=== PATIENT | male | born 1970 | race Caucasian/White ===

== ENCOUNTER 2021-02-11 16:34 | Emergency (ER) | payer MEDICARE, OTHER ==
[~2021-02-11] VITALS: Ht 177.8 cm; Wt 71.2 kg
--- NOTE | 2021-02-11 16:34 | NUR ---
PT [facility] 58 AND [employer] FROM THE BUS STATION C/O FACIAL TRAUMA AND BEHAVIORAL. PT IS AAOX4, NOT IN RESPIRATORY DISTRESS, V/S STABLE, KEPT RESTED AND COMFORTABLE. SITTER AT BEDSIDE. WILL CONTINUE TO MONITOR.
[2021-02-11] MEDS ORDERED: OLANZAPINE 10 MG VIAL IM ONE ×2 (16:50→17:00)
--- NOTE | 2021-02-11 18:18 | NUR ---
CALLED Ramirez Mckeon [phone] [facility] DOCTOR WILL BE PAGED.
[2021-02-11] MEDS ORDERED: LIDOCAINE 0.5%-EPI 1:200,000 50 ML VIAL ONE (18:20)
[2021-02-11] MEDS ORDERED: MORPHINE SULFATE INJ 4 MG/ML DISP.SYRIN ONE (18:29)
[2021-02-11] MEDS ORDERED: ONDANSETRON HCL/PF 4 MG/2 ML VIAL ONE (18:29)
[2021-02-11] MEDS ORDERED: ONDANSETRON HCL/PF 4 MG/2 ML VIAL IVP ONE (18:30)
[2021-02-11] MEDS ORDERED: CEFAZOLIN 1 GM in IV D5W 50 ML IV ONE (18:30)
[2021-02-11] MEDS ORDERED: IV NS 0.9% 1,000 ML BAG IV ONE (18:30)
[2021-02-11] MEDS ORDERED: LIDOCAINE 1%-EPI 1:100,000 20 ML VIAL TP ONE (18:30)
[2021-02-11] MEDS ORDERED: MORPHINE SULFATE INJ 2 MG/ML DISP.SYRIN IV ONE (18:30)
[2021-02-11] MEDS ORDERED: MIDAZOLAM HCL 5 MG/5ML VIAL ONE (18:40)
[2021-02-11 18:42] LABS: CALCIUM, SERUM 8.9 mg/dL (8.5-10.1); CREATININE 0.8 mg/dL (0.6-1.3); POTASSIUM 3.2 mmol/L (3.5-5.1)
[2021-02-11 18:47] LABS: ALBUMIN 3.7 g/dL (3.4-5.0); BILIRUBIN,DIRECT 0.1 mg/dL (0.0-0.2); BILIRUBIN,TOTAL 0.3 mg/dL (0.2-1.0); TOTAL PROTEIN, SERUM 7.3 g/dL (6.4-8.2)
[2021-02-11] MEDS ORDERED: MIDAZOLAM HCL 5 MG/5ML VIAL IV ONE (19:30)
[2021-02-11 19:44] LABS: BASOPHILS # (AUTO) 0.1 K/uL (0.0-0.2); BASOPHILS % (AUTO) 0.7 % (0.0-2.0); EOSINOPHILS % (AUTO) 5.1 % (0.0-6.0); HEMATOCRIT 38 % (39-51); HEMOGLOBIN 12.9 g/dL (13.5-17.5); LYMPHOCYTES # (AUTO) 1.1 K/uL (0.8-4.8); LYMPHOCYTES % (AUTO) 14.7 % (20.0-44.0); MEAN CORPUSCULAR HGB CONC 34 g/dl (31.0-36.0); MEAN CORPUSCULAR VOLUME 94 fL (80-96); MONOCYTES # (AUTO) 0.6 K/uL (0.1-1.30); MONOCYTES % (AUTO) 7.6 % (2.0-12.0); NEUTROPHILS # (AUTO) 5.4 K/uL (1.8-8.9); NEUTROPHILS % (AUTO) 71.9 % (43.0-81.0); PLATELET COUNT (AUTO) 298 K/uL (150-450); RED BLOOD CELL COUNT(AUTO) 4.09 MIL/uL (4.5-6.0); WHITE BLOOD COUNT (AUTO) 7.6 K/uL (4.3-11.0)
--- NOTE | 2021-02-11 20:17 | NUR ---
MAC CALLED FOR HIGHER LEVEL OF CARE. ONLY OPEN TO TRAUMA AND OB
[2021-02-11] MEDS ORDERED: AMOX-430 PO (22:02)
--- NOTE | 2021-02-12 05:54 | NUR ---
Patient isambulatory with a steady gait.
[2021-02-12 05:55] VITALS: BP 125/83
--- NOTE | 2021-02-12 05:55 | NUR ---
IV removed. Catheter intact and site benign. Pressure and 4x4 applied to site. No bleeding noted.
--- NOTE | 2021-02-12 05:56 | NUR ---
Patient discharged to home in stable condition. Written and verbal after care instructions given. Patient verbalizes understanding of instruction.
--- NOTE | 2021-02-12 05:56 | NUR ---
Patient teachbacks that he will follow up with Dr. Correa for surgery within the week.
== END 2021-02-12 05:55 | disposition home or self-care (01) ==
LOC: ER 16:40
DX: S02.2XXA Fracture of nasal bones, initial encounter for closed fracture (principal); S02.40CA Maxillary fracture, right side, initial encounter for closed fracture; F17.290 Nicotine dependence, other tobacco product, uncomplicated; S02.40EA Zygomatic fracture, right side, initial encounter for closed fracture; S02.85XA Fracture of orbit, unspecified, initial encounter for closed fracture; S01.411A Laceration without foreign body of right cheek and temporomandibular area, initial encounter; F15.10 Other stimulant abuse, uncomplicated; F24 Shared psychotic disorder; F10.10 Alcohol abuse, uncomplicated; E87.6 Hypokalemia; D64.9 Anemia, unspecified; Z59.0 Homelessness; Y08.89XA Assault by other specified means, initial encounter; Y93.89 Activity, other specified; Y92.89 Other specified places as the place of occurrence of the external cause; Y99.8 Other external cause status; Y90.9 Presence of alcohol in blood, level not specified
CPT/HCPCS: 12011; 36415; 70450; 70486; 72125; 80048; 80076; 82962; 85025; 96365; 96372; 96375; 99285; 99406; A6403 ×2; J0690; J2250; J2270; J2405; J3490 ×2; J7030 ×2; J7060

== ENCOUNTER 2022-05-16 17:55 | Emergency (ER) | payer MEDICARE, OTHER ==
[~2022-05-16] VITALS: Ht 170.2 cm; Wt 61.2 kg
[~2022-05-16 17:55] MED LIST: AMOX-430 PO
[2022-05-16 20:33] VITALS: BP 128/70
--- NOTE | 2022-05-16 20:33 | NUR ---
Patient discharged to home in stable condition. Written and verbal after care instructions given. Patient verbalizes understanding of instruction.
== END 2022-05-16 20:34 | disposition home or self-care (01) ==
LOC: ER 18:19
DX: S09.90XA Unspecified injury of head, initial encounter (principal); F31.9 Bipolar disorder, unspecified; F17.200 Nicotine dependence, unspecified, uncomplicated; Z59.00 Homelessness unspecified; W22.8XXA Striking against or struck by other objects, initial encounter; Y93.89 Activity, other specified; Y92.89 Other specified places as the place of occurrence of the external cause; Y99.8 Other external cause status
CPT/HCPCS: 70450-TC; 72125-TC